=== PATIENT | male | born 1985 | race Caucasian/White ===

== ENCOUNTER 2018-10-25 19:15 | Emergency (ER) | payer SELFPAY ==
[~2018-10-25] VITALS: Ht 177.8 cm; Wt 90.9 kg
[2018-10-25 19:17] VITALS: TEMP 98.6
[2018-10-25] MEDS ORDERED: PRILOSEC 20MG20 MG PO (19:45)
[2018-10-25] MEDS ORDERED: CLEOCIN HCL300 MG PO (20:46)
[2018-10-25] MEDS ORDERED: PERCOCET 325 MG1 TA2 PO (20:46)
[2018-10-25 21:04] VITALS: BP 140/77; PULSE 81
== END 2018-10-25 21:08 | disposition home or self-care (01) ==
LOC: COL.ER 19:15
DX: S02.5XXA Fracture of tooth (traumatic), initial encounter for closed fracture (principal); F17.210 Nicotine dependence, cigarettes, uncomplicated; K21.9 Gastro-esophageal reflux disease without esophagitis; X58.XXXA Exposure to other specified factors, initial encounter
CPT/HCPCS: J1885